=== PATIENT | female | born 1970 | race Caucasian/White ===

== ENCOUNTER 2020-03-31 07:01 | Day surgery (SDC) | payer OTHER ==
--- NOTE | 2020-02-26 11:41 | EKG ---
Test Date: 2020-02-26 Test Time: 11:23:29 Petroleum Inspector: KALEIGH MEASUREMENT RESULTS: Intervals: Rate: 72 VT: 162 QRSD: 78 QT: 394 QTc: 431 Sunset: P: 40 VT: 162 QRS: -40 T: -11 INTERPRETIVE STATEMENTS: Normal sinus rhythm Left axis deviation Anterior infarct, age undetermined Abnormal ECG No previous ECG available for comparison Electronically Signed On 02-26-20 11:40:40 WIRE FRAME DIPPER by Abraham Shirley
--- NOTE | 2020-02-26 13:33 | RAD REPORT ---
EXAM DESCRIPTION: RAD - Chest Pa And Lat (2 Views) - 02/26/2020 12:01 pm CLINICAL HISTORY: preop, patient kidney stone removal COMPARISON: None TECHNIQUE: Frontal and lateral views of the chest were obtained. FINDINGS: The lungs are clear. Heart size is normal and central vasculature is within normal limit s. No pleural effusion or pneumothorax seen. No acute bony finding noted. No aortic abnormality. IMPRESSION: No acute cardiopulmonary process.
[2020-03-27 11:51] LABS: Urine Appearance CLEAR; Urine Bilirubin NEGATIVE (NEG); Urine Blood TRACE (NEG); Urine Color YELLOW; Urine Glucose NEGATIVE (NEG); Urine Protein NEGATIVE (NEG); Urine Urobilinogen 0.2 mg/dL (0.2-1.0); Urine pH 5.5 (5.0-7.0)
[2020-03-27 11:55] LABS: Urine Microscopic Reflex ORDER UMIC
[2020-03-27 11:58] LABS: Hematocrit 37.4 % (36.0-45.0); MPV 7.9 fL (7.6-11.3); RBC Red Blood Cell Count 4.32 M/uL (3.86-4.86)
[2020-03-27 12:05] LABS: Protime INR 0.97
[2020-03-27 12:05] LABS: Urine Bacteria <20 /HPF (<20); Urine RBC <5 /HPF (NONE SEEN)
--- OUTSIDE RECORDS SUMMARY | 2020-03-31 07:16 | XMS REPORT ---
:1970 Author Organization [facility] Address [address] [facility] [place] [address] Care Team Providers Name Role Phone Uziel Tomlin Unavailable [phone] PROBLEMS Type Condition ICD9-CM [id number] Onset Condition SNOMED Code Notes Code Code Dates Status Problem Ureterolithiasis N20.1 Active 70962644 Problem Kidney stones N20.0 Active 28092730 Problem Lesion of right N28.9 Active 20426192 [place] [facility] ALLERGIES Allergen (clinical Drug/Non Drug Reaction Allergy Type Onset Date S tatus drug ingredient) Allergy documented on EMR SULFA Unknown Non Drug Allergy Active ENCOUNTERS from 1970 to 2020-03-11 Encounter Location Date Provider Diagnosis [facility] [address] [facility] [address], Uziel Tomlin Specialty[facility] [address] IMMUNIZATIONS No Information SOCIAL HISTORY Tobacco Use: Social History Observation Description Date Details (start date - stop date) Never Smoker Sex Assigned At : Social History Observation Description Sex Assigned At Unknown Alcohol Screen Question Answer Notes Did you have a drink containing alcohol in the past year? No Points 0 Interpretation Negative Tobacco Use/Smoking Question Answer Notes Are you a never smoker REASON FOR REFERRAL No Information VITAL SIGNS No information MEDICATIONS Medication SIG (Take, Route, Notes Start Date End Date Status Frequency, Duration) Gabapentin 100 MG 1 capsule Orally Once a Active day Metformin HCl 1000 MG 1 tablet with meals Orally Active Twice a day Metoprolol Tartrate 25 MG 1 tablet with food Orally Active Twice a day Sertraline HCl 50 MG 1 tablet Orally Once a day Active cyclobenzaprine Active BusPIRone HCl 15 MG 1 tablet Orally Twice a Active day PROCEDURES No Information RESULTS No Results REASON FOR VISIT No Information MEDICAL (GENERAL) HISTORY Type Description Date Medical History DEPRESSION Medical History DIABETES Medical History HYPERTENSION Medical History KIDNEY STONE Surgical History LEFT FOOT Surgical History GALLBLADDER REMOVED Goals Section No Information Health Concerns No Information MEDICAL EQUIPMENT No Information MENTAL STATUS No Information FUNCTIONAL STATUS No Information ASSESSMENTS No Information PLAN OF TREATMENT Next Appt Details Provider Name:Uziel Tomlin, 11:00:00 AM, [address] [place] [address], [facility] [address], [place], [address], Insurance Providers Payer Name Payer Payer Insured Name Patient Coverage Covera End Address Phone Relationship to Start Date Armen e Insured [employer] [phone] ANIL BUNCH self [id number] [address]
--- OUTSIDE RECORDS SUMMARY | 2020-03-31 07:16 | XMS REPORT ---
:1970 Author Organization [facility] Address [address] [facility] [place] [address] Care Team Providers Name Role Phone Uziel Tomlin Unavailable [phone] PROBLEMS Type Condition ICD9-CM [id number] Onset Condition SNOMED Code Notes Code Code Dates Status Problem Ureterolithiasis N20.1 Active 77892671 Problem Kidney stones N20.0 Active 19207764 Problem Lesion of right N28.9 Active 74017426 [place] [facility] ALLERGIES Allergen (clinical Drug/Non Drug Reaction Allergy Type Onset Date S tatus drug ingredient) Allergy documented on EMR SULFA Unknown Non Drug Allergy Active ENCOUNTERS from 1970 to 2020-02-17 Encounter Location Date Provider Diagnosis [facility] [address] Jan, Uziel Tomlin Ureterolithi asis N20.1 Specialty/Urology [address] and Lesion of right Clinic [place] [facility] N 28.9 [address] IMMUNIZATIONS No Information SOCIAL HISTORY Tobacco Use: [...] REASON FOR REFERRAL No Information VITAL SIGNS Height 65 in Jan, Weight 196.4 lbs Jan, Temperature 98.4 degrees Fahrenheit Jan, BMI 32.68 kg/m2 Jan, Oximetry 98 % Jan, Blood pressure systolic 155 mm Hg Jan, Blood pressure diastolic 81 mm Hg Jan, MEDICATIONS Medication SIG (Take, Route, Notes Start [...] Information RESULTS No Results REASON FOR VISIT KIDNEY STONES/ER MEDICAL (GENERAL) HISTORY Type Description Date Medical History DEPRESSION Medical History DIABETES Medical History HYPERTENSION Medical History KIDNEY STONE Surgical History LEFT FOOT Surgical History GALLBLADDER REMOVED Goals Section No Information Health Concerns No Information MEDICAL EQUIPMENT No Information MENTAL STATUS No Information FUNCTIONAL STATUS No Information ASSESSMENTS Encounter Date Diagnosis Assessment Notes Treatment Notes Treatm ent Clinical Notes Jan, Ureterolithiasis (ICD-10 - N20.1) Jan, Lesion of right [place] [facility] (ICD-10 - N28.9) PLAN OF TREATMENT Treatment Notes Test Name Order Date URINALYSIS AUTO W/O SCOPE (00608) 2020-02-17 Insurance Providers Payer Name Payer Payer Insured Name Patient Coverage Covera ge End Address Phone Relationship to Start Date Armen e Insured A[employer] [phone] ANIL VELAZCO self [id number] [address]
--- OUTSIDE RECORDS SUMMARY | 2020-03-31 07:16 | XMS REPORT | Continuity of Care Document ---
:1970 Author [facility] Address [address] [place] [address] Care Team Providers Name Role Phone Unavailable Unavailable Unavailable Problems Condition Condition Condition Status Onset Resolution Last Treating Co mments Source Name Details Category Date Date Treatment Clinician Date Acute Acute Problem Active [facility] otitis Otitis 04-10 [facility] Media 00:00: Medical 00 Group Asthmatic Asthmatic Problem Active [facility] bronchitis Bronchitis 04-10 da 00:00: Medical 00 Group Skin Skin Problem Active 2016-03 [facility] lesion Lesion 0-05 da 00:00: Medical 00 Group Malaise Malaise Problem Active 2016-03 [facility] 0-05 da 00:00: Medical 00 Group Easy Easy Problem Active 2016-03 [facility] bruising Bruising 0-05 da 00:00: Medical 00 Group Traumatic Traumatic Problem Active [facility] hematoma Hematoma 2- da 00:00: Medical 00 Group 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 [facility] Anxiety Anxiety Problem Active [facility] Migraine Migraine Problem Active [facility] Eustachian Eustachian Problem Active M [facility] tube Tube da disorder Disorder Medica l Group Labile Labile Problem Active [facility] essential Essential da hypertensi Hypertensi Me dical on on Group Allergic Allergic Problem Active [facility] rhinitis Rhinitis [facility] Dysmenorrh Dysmenorrh Problem Active [facility] ea ea [facility] Prolonged Prolonged Problem Active [facility] periods Periods [facility] Low back Low Back Problem Active [facility] pain Pain [facility] Foot pain Foot Pain Problem Active [facility] Dizziness Dizziness Problem Active [facility] present Present [facility] Fatigue Fatigue Problem Active [facility] Headache Headache Problem Active [facility] Abdominal Abdominal Problem Active [facility] pain Pain [facility] Motion Motion Problem Active [facility] sickness Sickness [facility] Allergies, Adverse Reactions, Alerts Allergy Allergy Status Severity Reaction(s) Onset Inactive Treating Comm ents Source Name Type Date Date Clinician SULFA Allergy Active [facility] (SULFONA to da [facility] ANTIBIOT e Group ICS) Social History Smoking Status Start Date Stop Date Source Never Smoker [facility] Medications This patient has no known medications. Immunizations Ordered Immunization Filled Immunization Date Status Commen ts Source Name Name influenza, influenza, 2019-03-20 Completed [place] injectable, injectable, 00:00:00 [facility] p quadrivalent quadrivalent Vital Signs Vital Name Observation Time Observation Value Comments Source BP Diastolic 2020-03-16 00:00:00 83 mm[Hg] [facility] Height 2020-03-16 00:00:00 65 [in_i] [facility] BMI (Body Mass 2020-03-16 00:00:00 31.2 kg/m2 [facility] BP Systolic 2020-03-16 00:00:00 120 mm[Hg] [facility] Body Weight 2020-03-16 00:00:00 3003.2 [oz_av] [facility] BP Diastolic 2019-01-17 00:00:00 94 mm[Hg] [facility] Height 2019-01-17 00:00:00 65 [in_i] [facility] BMI (Body Mass 2019-01-17 00:00:00 32.7 kg/m2 [facility] BP Systolic 2019-01-17 00:00:00 159 mm[Hg] [facility] Body Weight 2019-01-17 00:00:00 3141 [oz_av] [facility] Procedures Procedure Date / Time Performing Clinician Source Performed Cholecystectomy 1997-03-20 00:00:00 [facility] Plan of Care Planned Activity Planned Date Details Comments Source Diagnostic Test 2020-03-16 rapid SARS CoV + [facility] Pending 00:00:00 SARS CoV 2 Ag, QL Group IA, respiratory specimen [code = rapid SARS CoV + SARS CoV 2 Ag, QL IA, respiratory specimen] Future Appointment 2020-04-16 Iman Price, [address] [facility] 00:00:[address] [address]; [place] [address] Instructions [facility] Encounters Start End Encounter Admission Attending Care Care Encounter Source Date/Time Date/Time Type Type Clinicians Facility Department ID 2020-03-16 2020-03-16 Iman ZAMUDIO [place] - [id number] [facility] 00:00:00 00:00:00 [facility] [employer]: [address] [address], [place] [address] , Ph. 2020-03-11 2020-03-11 Outpatient [facility] [id number] [facility] 2020-02-17 2020-02-17 Outpatient [facility] [id number] [facility] 2019-01-17 2019-01-17 Iman ZAMUDIO [place] - [id number] [facility] 00:00:00 00:00:00 [facility] [employer]: [address] [address], [place] [address] , Ph. Results This patient has no known results.
--- OUTSIDE RECORDS SUMMARY | 2020-03-31 07:17 | XMS REPORT | Encounter Summary ---
:1970 Author Care Team Providers Name Role Phone Nile Justin MD Primary Care Provider [phone] Reason for Visit None recorded. Instructions 1. COVID-19 rapid SARS CoV + SARS CoV 2 Ag, QL IA, respiratory specimen 2. Kidney stone kidney stone: care instruc tions learning about diet for ki dney stone prevention Discussion Note: None recorded. Plan of Care Patient Instructions Hydrate. F/U with urology. F/U for wellness exam in 1 month. Reminders Provider Appointments Adult on or around [place] [place] Physical Exam (50-64) 04/16/2020 [facility] Rapid SARS 03/16/2020 In-Off ice Order CoV + SARS CoV 2 Ag, QL IA, Respiratory Specimen Referral None recorded. Procedures None recorded. Surgeries None recorded. Imaging None recorded. Medications No Medications Reported Medications Administered None recorded. Vitals Height Weight BMI Blood Pressure 65 in 187 lbs 11.2 oz 31.2 kg/m2 120/83 mm[Hg] Results Lab Results Date Name Specimen Result Interpretation Description Value Range Status Address Rapid SARS CoV + SARS-CoV - negative In-Office Order: SARS CoV 2 Ag, 2 In ternal Use QL IA, Only DO No t Respiratory Attac h Specimen Compendi um DO Not Attach Compendium , Do Not Delete /merge Allergies Code Code System Name Reaction Severity Status Onset Sulfa Active (Sulfonamid e Antibiotics ) Problems Name Status Onset Date Source Traumatic Hematoma Active 04/28/2016 Skin Lesion Active 12/22/2016 Malaise Active 12/22/2016 Easy Bruising Active 12/22/2016 Acute Otitis Media Active 04/10/2017 Asthmatic Bronchitis Active 04/10/2017 Neoplasm of Kidney Active Encounter Anxiety Active Encounter Migraine Active Encounter Eustachian Tube Disorder Active Encount er Labile Essential Hypertension Active En counter Allergic Rhinitis Active Encounter Dysmenorrhea Active Encounter Prolonged Periods Active Encounter Low Back Pain Active Encounter Foot Pain Active Encounter Dizziness Present Active Encounter Fatigue Active Encounter Headache Active Encounter Abdominal Pain Active Encounter Motion Sickness Active Encounter Procedures Date Name Performed by 03/20/1997 Cholecystectomy Information not avai lable [facility] Foot Joint Information no t available Vaccine List Vaccine Type influenza, injectable, quadrivalent 03/20/2019 Social History Tobacco Smoking Status Never Smoker Past Encounters Encounter Date Diagnosis Provider 03/16/2020 Covid-19; Kidney Stone Iman Green Glenna ns, 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 History of Present Illness Note: Tested positive for COVID 02/27/2020, kidney stone surgery cancelled. Need a negative for surgery and to rtn to work. Denies symptoms. Review of Systems Problem ROS - Female Reported By: Patient Constitutional: Constitutional: no significa nt weight change, good appetite, no fever, happy/content, nor mal activity level, no fatigue Eyes: Eyes: no eye pain, no blurry vision, no eye redness, no eye itchiness, no eye swelling, no eye discharge, normal movement ENMT: ENMT: no ear pain, no ear di scharge, no hearing loss, no sinus pressure, no drooling, no fa cial swelling, no congestion, no sore throat, no hoarseness, no mouth lesions Cardiovascular: Cardiovascular: no chest coby n, normal heart rate Chest/Breasts: Breasts: no lumps, no tender ness, no discharge Respiratory: Respiratory: no cough, no wh eezing, no chest tightness, no pain with respiration, yessy l respiration Gastrointestinal: GI: no difficulty swallowing , no abdominal pain, no nausea, no vomiting, no diarrhea, no co nstipation, no blood in stools, no mucous in stool Genitourinary: : no discharge, no blood i n urine, no pain with urination, no increase in frequency of urination, no voiding urgency, no vaginal discharge Musculoskeletal: Musculoskeletal: no soft tis raf swelling, no joint swelling, no myalgia, moves all extrem eties well, no previous injuries, no trauma Skin: Skin: no pain, no itchiness, no skin dryness, no flaking, no redness, no rash, no diaper rash, no hives, no skin lesions, no skin growths, no skin lum ps, no swelling, no bruising, no insect bites Neurological symptoms: Neuro: no numbness, no weakn ess, no tingling, no burning, no shooting pain, no headache, no dizziness, no loss of conciousness Psychiatric: Psych: no depression, no anx iety, no insomnia, no stress, no loss of interest Endocrine: Endocrine: normal drinking, no temperature intolerance Allergic/Immunologic: Allergy/Immunologic: no snee zing, no runny nose Notes: Left flank pain Physical Exam General Adult Exam - Female Reported By: Patient Constitutional: General Appearance: well-dev eloped, obese. Level of Distress: NAD, acutely ill. Ambulation: amb ulating normally Psychiatric: Insight: good judgement. Men catarino Status: active and alert, normal mood, normal affect. Orienta tion: to time, to place, to person. Memory: recent memory normal , remote memory normal Head: Head: normocephalic, atrauma tic Eyes: Lids and Conjunctivae: non-i njected, no discharge, no pallor. Pupils: PERRLA. EOM: EOMI. L ens: clear ENMT: Ears: no lesions on external ear. Hearing: no hearing loss Lungs: Respiratory effort: no dyspn ea. Percussion: no dullness, flatness, or hyperresonance. Auscultat ion: breath sounds normal, good air movement, CTA except as note d, no wheezing, no rales/crackles, no rhonchi Cardiovascular: Apical Impulse: not displace d. Heart Auscultation: RRR, normal S1, normal S2, no murmurs, no ru bs, no gallops. Neck vessels: no carotid bruits. Pulses inclu ding femoral / pedal: normal throughout Musculoskeletal:: Motor Strength and Tone: nor mal motor strength, normal tone. Joints, Bones, and Muscles: normal movement of all extremities, no bony abnormalities, no contr actures, no malalignment, no tenderness. Extremities: no cyanosis, no edema, no varicosities, no palpable cord Neurologic: Gait and Station: normal gai t, normal station. Cranial Nerves: grossly intact. Sensation: g rossly intact, monofilament test intact. Reflexes: DTRs 2+ bi laterally throughout. Coordination and Cerebellum: [id number] i ntact, no tremor
[2020-03-31] MEDS ORDERED: NA CHLORIDE 0.9% 1,000 ML ONE (07:39)
[2020-03-31] MEDS ORDERED: CEFAZOLIN/SWI 1gm 1 GM/10 ML SYR ONE (07:39)
[2020-03-31] MEDS ORDERED: propofoL 200 MG/20 ML VIAL IV ONE ×2 (08:32→09:18)
[2020-03-31] MEDS ORDERED: FENTANYL CITR 100 MCG/2 ML ONE (08:32)
[2020-03-31] MEDS ORDERED: MIDAZOLAM HCL 2 MG/2 ML INJ ONE (08:32)
[2020-03-31] MEDS ORDERED: LIDOCAINE 1% MPF 5 ML VIAL ONE (08:33)
[2020-03-31] MEDS ORDERED: ONDANSETRON 4 MG/2 ML VIAL ONE (09:34)
[2020-03-31] MEDS ORDERED: dexAMETHasone 10 MG/ML VIAL ONE (09:34)
[2020-03-31] MEDS ORDERED: KETOROLAC 30 MG/ML INJ ONE (09:34)
--- NOTE | 2020-03-31 10:17 | RAD REPORT ---
EXAM DESCRIPTION: RAD - Urethrocystogrphy Retrograde - 03/31/2020 9:35 am FINDINGS: There were 27 KUB images obtained during a fluoroscopic assisted placement of a left urete ral stent. Images show stepwise placement of the stent with no suspicious or unexpected finding. Fluoro time was 40 seconds.
[2020-03-31 11:00] VITALS: BP 140/77; TEMP 97.6; O2SAT 99
--- NOTE | 2020-03-31 11:45 | OP ---
Surgeon: RACHELLE KNOX Preoperative Diagnosis: Left obstructive ureterolithiasis, 7 mm. Associated Diagnosis: Renal lesion. Postoperative Diagnosis: Left obstructive ureterolithiasis, 7 mm. Principal Procedures: 1.Cystoscopy. 2.Left retrograde pyelography. 3.Left ureteroscopy. 4.Left ureteral stent placement. Indication For Procedure: Ms. Duran presented to the Urology Clinic having been seen in the Emergen cy Department with flank pain and an obstructing 7 mm proximal ureteral calculus on the left. She at tempted a trial of passage, but was scheduled ultimately for surgery when she was unable to successfu lly and spontaneously pass the stone. She presents today for definitive management. Of note, she fernandez d an incidentally observed, poorly characterized renal lesion that is pending evaluation. Procedure Note: The patient was consented in the preoperative holding area before being transferred to the operative suite where general anesthesia using an LMA was induced. She was given ampicillin a nd gentamicin IV antimicrobial prophylaxis and pneumo boots were provided for DVT prophylaxis. She w as placed in the lithotomy position, padded and secured to the table appropriately. Her genitalia we re prepped using Hibiclens and she was draped in standard fashion. The case was begun using a [facility] rigid cystoscope to traverse the urethra and into the bladder with ease. The bladder was surveye d in its entirety, and there were no mucosal lesions, foreign bodies or stones noted throughout. The trigone was orthotopic in location, and the left ureteral orifice was identified and cannulated usin g the tip of a 5-Malaysian ureteral access catheter. A retrograde pyelogram was then performed. Left retrograde pyelography: Using a 70:30 mixture of Omnipaque and saline, contrast mixture was inj ected via the 5-Malaysian ureteral access catheter and did propagate with ease up the ureter and into a relatively dilated left renal pelvis with some caliectasis. Thus, via the 5-Malaysian ureteral access c atheter, a Sensor wire was passed and did coil with ease in the upper pole calyx of the left kidney. I then removed the 5-Malaysian ureteral access catheter and placed over the indwelling Sensor wire a du al-lumen catheter. The dual-lumen catheter would only barely enter the ureteral orifice, but would n ot pass beyond 1 or 2 cm therein. I was able to inject dye into the second lumen of the ureteral acc ess catheter to confirm its intraureteral location. Once done, I then passed a Empathicason guidewire eas ivan into the upper pole of the kidney, coiling fluoroscopically next to the indwelling Sensor wire. I thus removed the dual-lumen catheter and attempted to pass a ureteral access catheter over the seco nd placed guidewire. The ureteral access catheter would similarly only pass approximately 1 cm into the ureteral orifice. Attempts to pass it further in order to facilitate passage of the flexible ure teroscope were not possible. As a result, I then removed the ureteral access catheter and leaving jorge th wires in place performed direct visualization semirigid ureteroscopy and was able to enter the ure teral orifice and pass the ureteroscope into the mid distal ureter before it was unwise to pass it fu rther due to the ureteral spasm and tension felt. As a result, having further dilated the ureteral o rifice, I then replaced the ureteral access catheter into the distal ureteral orifice an attempted to pass the flexible ureteroscope to gain access into the proximal ureter and renal pelvis. Unfortunat david, I was not able to pass the flexible ureteroscope beyond the pelvic brim and despite attempts to pass it further using a superstiff guidewire via the flexible ureteroscope, the ureteroscope would no t pass. As a result, I removed the ureteroscope and the second wire and using the Sensor wire, I monica kloaded the cystoscope to place a 6-Malaysian x 26 cm double-J left ureteral stent with ease with a coil observed fluoroscopically in the upper pole of the kidney and one cystoscopically within the bladder . The bladder was then decompressed of fluid and urine, and the scope was removed. The patient was then taken out of lithotomy position, then awakened from general anesthesia before being transferred to a stretcher and then to the recovery room in good condition. Complications: None. Discharge Disposition: The patient will require a subsequent operative followup for definitive manag ement of her proximal ureteral calculus and in the interim, we will evaluate the poorly characterized renal lesion with a CT scan without and with IV contrast. WR/MODL Voice ID: [id number] Report ID: [id number]
== END 2020-03-31 10:50 | disposition home or self-care (01) ==
LOC: OR 07:01
PROVIDERS: ATTEND Urology
PROC: BT1FZZZ Fluoroscopy of Left Kidney, Ureter and Bladder (ICD-10-PCS; 2020-03-31)
PROC: 0T778DZ Dilation of Left Ureter with Intraluminal Device, Via Natural or Artificial Opening Endoscopic (ICD-10-PCS; principal; 2020-03-31 08:54)
DX: N20.1 Calculus of ureter (principal); I10 Essential (primary) hypertension; E11.9 Type 2 diabetes mellitus without complications; N28.9 Disorder of kidney and ureter, unspecified; Z20.822 Contact with and (suspected) exposure to COVID-19; Z86.16 Personal history of COVID-19
CPT/HCPCS: 52005; 52351; 52332; 93005; 87088 ×2; 87086 ×2; 80048; 36415; 85610; 82947 ×2; 85730; 85027; 71046; 74450; 51610; U0002 ×2; J2704 ×2; J2250; J3010; J1100; J0690; J7030; J2405; 81003; 81015

== ENCOUNTER 2020-04-28 08:52 | Day surgery (SDC) | payer OTHER ==
[~2020-04-28 08:52] MED LIST: AMPICILLIN SODIUM 2 GM in NA CHLORIDE 0.9% 100 ML IVPB SCH; Gentamicin Inj 240 MG in NA CHLORIDE 0.9% 100 ML IV SCH
[2020-04-28] MEDS ORDERED: CEFAZOLIN/SWI 1gm 1 GM/10 ML SYR ONE (10:24)
[2020-04-28] MEDS ORDERED: NA CHLORIDE 0.9% 1,000 ML ONE ×2 (10:24→14:38)
[2020-04-28] MEDS ORDERED: dexAMETHasone 10 MG/ML VIAL ONE (12:25)
[2020-04-28] MEDS ORDERED: propofoL 200 MG/20 ML VIAL IV ONE (12:25)
[2020-04-28] MEDS ORDERED: KETOROLAC 30 MG/ML INJ ONE (12:25)
[2020-04-28] MEDS ORDERED: MIDAZOLAM HCL 2 MG/2 ML INJ ONE (12:25)
[2020-04-28] MEDS ORDERED: FENTANYL CITR 100 MCG/2 ML ONE ×2 (12:25→14:23)
[2020-04-28] MEDS ORDERED: ONDANSETRON 4 MG/2 ML VIAL ONE (12:26)
[2020-04-28] MEDS ORDERED: LIDOCAINE 1% MPF 5 ML VIAL ONE (12:26)
[2020-04-28] MEDS ORDERED: ROCURONIUM 50 MG/5 ML VIAL IV ONE (14:41)
[2020-04-28] MEDS ORDERED: Mastisol Adhesive Liq ONE (14:43)
--- NOTE | 2020-04-28 15:22 | RAD REPORT ---
EXAM DESCRIPTION: RAD - Urethrocystogrphy Retrograde - 04/28/2020 3:02 pm FINDINGS: There were 19 fluoroscopic KUB images obtained during fluoroscopic assisted placement of a left ureteral stent. Images show stepwise placement of the stent with no suspicious or unexpected findings. Stent is in go od position. Fluoro time was 0.1 minutes.
--- NOTE | 2020-04-28 15:38 | OP ---
Surgeon: RACHELLE KNOX Preoperative Diagnosis: Left obstructive ureterolithiasis with left 6 mm nephrolithiasis. Postoperative Diagnosis: Left nephrolithiasis 6 mm. Principle Procedures: Cystoscopy, left ureteroscopy, laser lithotripsy, stent exchange. Indication For Procedure: Ms. Duran presented to the Urology Clinic with an obstructing left mid ur eteral calculus. She underwent stent placement due to spasm of the ureter that would not allow passa ge of the ureteroscope. She presents today for definitive management of her stone. Procedure In Detail: The patient was consented in the preoperative holding area before being transfe rred to the operative suite where general anesthesia was induced. She was given ampicillin and genta micin IV antimicrobial prophylaxis. Pneumo boots were provided for DVT prophylaxis. She was placed in the lithotomy position, padded and secured to the table appropriately. Her genitalia were prepped using Hibiclens and draped in standard fashion. The case was begun using a 22-Angolan rigid cystosco pe to traverse the urethra and into the bladder with ease. The bladder was then surveyed to identify the stent emanating from the left ureteral orifice. This was grasped using an alligator grasper and delivered via the meatus. A Sensor wire was then passed via the stent and did coil within the putat namrata collecting system on the left. A dual-lumen catheter was then placed into the mid distal ureter and a second Bentson guidewire was passed into the collecting system alongside the indwelling Sensor wire. I then utilized a semi-rigid ureteroscope to directly visualize through the urethra and into t he bladder. I then entered the ureteral orifice and was able to navigate it up into the proximal ure ter where no stone was observed along the way. I then switched to a flexible ureteroscope, which I p assed over the Bentson guidewire into the upper pole of the kidney. I then surveyed each of the rica martin of the kidney and performed an antegrade pyelogram to confirm that all calices had been visualize d. A single 6 mm calculus was noted within the upper pole posterior calyx and due to the difficulty of the positioning relative to the flexible ureteroscope, a basket was required to deliver the stone into the UPJ. There, I used a 272 nm laser fiber to fragment the stone into dust using laser setting s of 0.8 and 15. I then surveyed the calices again, and with no additional stone fragments of any si gnificance noted, I then observed from the pelvis down the proximal to the mid and distal ureter wher e with no additional stones noted, ureteroscopy was discontinued. I then back-loaded the cystoscope over the indwelling safety wire and placed a 6-Angolan by 24 cm double-J left ureteral stent with a co il observed within the renal pelvis and 1 cystoscopically within the bladder. The patient was then a wakened from general anesthesia after being taken out of the lithotomy position, transferred to a [facility] etcher and then transferred to the recovery room in good condition. Complications: None. Discharge Disposition: The stent is left on a tether and may be removed within the next 2-3 days by nurse practitionerAlvin in the office. Antimicrobial prophylaxis should be provided at the time of stent removal and broad-spectrum enough to prevent infection, so either ciprofloxacin or Keflex w ould be preferred. Subsequent followup will be determined based on whether she is a recurrent stone former or not and whether a metabolic profile assessment is required. EDWIN/ALLEN Voice ID: [id number] Report ID: [id number]
[2020-04-28 16:00] VITALS: TEMP 96.9
[2020-04-28] MEDS ORDERED: HYDROCODONE/APAP 10/325 TAB ONE (16:00)
[2020-04-28 16:32] VITALS: BP 138/61; O2SAT 98
--- OUTSIDE RECORDS SUMMARY | 2020-04-29 05:06 | XMS REPORT ---
:1970 Author Organization [facility] Address [address] [place] [address] Care Team Providers Name Role Phone NaborUziel Unavailable [phone] PROBLEMS Type Condition ICD9-CM [id number] Onset Condition SNOMED Code Notes Code Code Dates Status Problem Lower urinary R39.9 Active 047566300 tract symptoms (LUTS) Problem Bladder spasms N32.89 Active 631324833 Problem Lesion of right N28.9 Active 52574128 [place] [facility] Problem Ureterolithiasis N20.1 Active 04858173 Problem Kidney stones N20.0 Active 38293644 Problem Complex renal cyst N28.1 Active 3357001298389 4102 ALLERGIES Allergen (clinical Drug/Non Drug Reaction Allergy Type Onset Date S tatus drug ingredient) Allergy documented on EMR SULFA Unknown Non Drug Allergy Active ENCOUNTERS from 1970 to 2020-04-09 Encounter Location Date Provider Diagnosis [facility] [address] [facility] [address], Uziel Tomlin [facility] [address] IMMUNIZATIONS No Information SOCIAL HISTORY Tobacco Use: [...] Start Date End Date Status Frequency, Duration) BusPIRone HCl 15 MG 1 tablet Orally Active Twice a day Sertraline HCl 50 MG 1 tablet Orally Once Active a day Metoprolol Tartrate 25 MG 1 tablet with food Active Orally Twice a day Metformin HCl 1000 MG 1 tablet with meals Active Orally Twice a day Ditropan 5mg one orally TID PRN Mar, Apr, Active for 15 days Gabapentin 100 MG 1 capsule Orally A ctive Once a day cyclobenzaprine Active PROCEDURES No Information RESULTS No Results REASON [...] Information ASSESSMENTS No Information PLAN OF TREATMENT Medication Medication Name Sig Start Date Stop Date Ditropan 5mg one orally TID PRN for 15 days Mar, 2 0 Apr, 2020 Insurance Providers Payer Name Payer Payer Insured Name Patient Coverage Covera ge End Address Phone Relationship to Start Date Armen e Insured [employer] [phone] ANIL BUNCH self [id number] [place] [address]
--- OUTSIDE RECORDS SUMMARY | 2020-04-29 05:06 | XMS REPORT ---
:1970 Author Organization [facility] Address [address] [place] [address] Care Team Providers Name Role Phone Uziel Tomlin Unavailable [phone] PROBLEMS Type Condition ICD9-CM UGT94-YY Onset Condition SNOMED Code Notes Code Code Dates Status Problem Lower urinary R39.9 Active 556612552 tract symptoms (LUTS) Problem Bladder spasms N32.89 Active 180744811 Problem Lesion of right N28.9 Active 40748502 [place] [facility] Problem Ureterolithiasis N20.1 Active 78350644 Problem Kidney stones N20.0 Active 08627741 Problem Complex renal cyst N28.1 Active 5701262732178 4102 ALLERGIES Allergen (clinical Drug/Non Drug Reaction Allergy Type Onset Date S tatus drug ingredient) Allergy documented on EMR SULFA Unknown Non Drug Allergy Active ENCOUNTERS from 1970 to 2020-04-09 Encounter Location Date Provider Diagnosis [facility] [address] [place], Uziel Tomlin Complex manisha l cyst N28.1 Specialty/Urology [facility] [address] ; Ureterol ithiasis N20.1 [place], [place] ; Bladder spasm s N32.89 [id number] and Lower urina ry tract symptoms (LUTS) R39.9 IMMUNIZATIONS No Information SOCIAL HISTORY Tobacco Use: [...] No Information VITAL SIGNS Height 65 in Mar, Weight 187.6 lbs Mar, Temperature 98.2 degrees Fahrenheit Mar, BMI 31.21 kg/m2 Mar, Oximetry 98 % Mar, Blood pressure systolic 159 mm Hg Mar, Blood pressure diastolic 76 mm Hg Mar, MEDICATIONS Medication SIG (Take, Route, Notes Start [...] Ditropan 5mg one orally TID PRN Mar, 20 Apr, 2020 Active for 15 days Gabapentin 100 MG 1 capsule Orally A ctive Once a day cyclobenzaprine Active PROCEDURES No Information RESULTS No Results REASON FOR VISIT HOSP FOLLOW-UP, CT SCAN RESULTS MEDICAL (GENERAL) HISTORY Type Description Date Medical History DEPRESSION Medical History DIABETES Medical History HYPERTENSION Medical History KIDNEY STONE Surgical History LEFT FOOT Surgical History GALLBLADDER REMOVED Goals Section No Information Health Concerns No Information MEDICAL EQUIPMENT No Information MENTAL STATUS No Information FUNCTIONAL STATUS No Information ASSESSMENTS Encounter Date Diagnosis Assessment Notes Treatment Notes Treatm ent Clinical Notes Mar, Complex renal cyst (ICD-10 - N28.1) Mar, Ureterolithiasis (ICD-10 - N20.1) Mar, Bladder spasms (ICD-10 - N32.89) Mar, Lower urinary tract symptoms (LUTS) (ICD-10 - R39.9) PLAN OF TREATMENT Medication Medication Name Sig Start Date Stop Date Ditropan 5mg one orally TID PRN for 15 days Mar, 2 0 Apr, 2020 Insurance Providers Payer Name Payer Payer Insured Name Patient Coverage Covera ge End Address Phone Relationship to Start Date Armen e Insured [employer] [phone] ANIL BUNCH self [id number] [place] [address]
--- OUTSIDE RECORDS SUMMARY | 2020-04-29 05:06 | XMS REPORT | Continuity of Care Document ---
:1970 Author Organization [facility] t Address [address] [place] [address] Care Team Providers Name Role Phone Unavailable Unavailable Unavailable Problems Condition Condition Condition Status Onset Resolution Last Treating Co mments Source Name Details Category Date Date Treatment Clinician Date Acute Acute Problem Active [facility] Otitis - da media Media 00:00: Medical 00 Group Asthmatic Asthmatic Problem Active [facility] bronchitis Bronchitis - da 00:00: Medical 00 Group Skin Skin Problem Active 2016-03 [facility] lesion Lesion 0-05 da 00:00: Medical 00 Group Malaise Malaise Problem Active 2016-03 [facility] 0-05 da 00:00: Medical 00 Group Easy Easy Problem Active 2016-03 [facility] bruising Bruising 0-05 da 00:00: Medical 00 Group Traumatic Traumatic Problem Active [facility] hematoma Hematoma 2-09 da 00:00: Medical 00 Group Neoplasm Neoplasm [...] SULFA Allergy Active [facility] (SULFONA to da [facility] ANTIBIOT e Group ICS) Social History Smoking Status Start Date Stop Date Source Never Smoker [facility] Medications This patient has no known medications. Immunizations Ordered Immunization Filled Immunization Date Status Commen ts Source Name Name influenza, influenza, 2019-03-20 Completed [place] injectable, injectable, 00:00:00 [facility] p quadrivalent quadrivalent Vital Signs Vital Name Observation Time Observation Value Comments Source BP Diastolic 2020-03-16 00:00:00 83 mm[Hg] [facility] Height 2020-03-16 00:00:00 65 [in_i] [facility] BMI (Body Mass 2020-03-16 00:00:00 31.2 kg/m2 [facility] BP Systolic 2020-03-16 00:00:00 120 mm[Hg] [facility] Body Weight 2020-03-16 00:00:00 3003.2 [oz_av] [facility] BP Diastolic 2019-01-17 00:00:00 94 mm[Hg] [facility] Height 2019-01-17 00:00:00 65 [in_i] [facility] BMI (Body Mass 2019-01-17 00:00:00 32.7 kg/m2 [facility] BP Systolic 2019-01-17 00:00:00 159 mm[Hg] [facility] Body Weight 2019-01-17 00:00:00 3141 [oz_av] [facility] Procedures Procedure Date / Time Performing Clinician Source Performed Cholecystectomy 1997-03-20 00:00:00 [facility] Exploration of Foot Joint [facility] Plan of Care Planned Activity Planned Date Details Comments Source Diagnostic Test 2020-03-16 rapid SARS CoV + [facility] Pending 00:00:00 SARS CoV 2 Ag, QL Group [place], respiratory specimen [code = rapid SARS CoV + SARS CoV 2 Ag, QL [place], respiratory specimen] Instructions [facility] Encounters Start End Encounter Admission Attending Care Care Encounter Source Date/Time Date/Time Type Type Clinicians Facility Department ID 2020-04-09 2020-04-09 Outpatient [facility] [id number] 2020-04-09 2020-04-09 Out[facility] [id number] [facility] 2020-03-16 2020-03-16 Iman [place] - [id number] [facility] 00:00:00 00:00:00 Norma Lewis, Medical Medical BOOKING MANAGER: [address], [place] [address] , Ph. 2020-03-11 2020-03-11 Outpatient [facility] [id number] [facility] 2020-02-17 2020-02-17 Outpatient [facility] [id number] [facility] 2019-01-17 2019-01-17 [facility] [place] - [id number] [facility] 00:00:00 00:00:00 Norma Lewsi Medical Medical BOOKING MANAGER: [address], [place] [address] , Ph. Results This patient has no known results.
== END 2020-04-28 16:30 | disposition home or self-care (01) ==
LOC: OR 08:52
PROVIDERS: ATTEND Urology
PROC: BT1FZZZ Fluoroscopy of Left Kidney, Ureter and Bladder (ICD-10-PCS; 2020-04-28)
PROC: 0TF78ZZ Fragmentation in Left Ureter, Via Natural or Artificial Opening Endoscopic (ICD-10-PCS; 2020-04-28)
PROC: 0T778DZ Dilation of Left Ureter with Intraluminal Device, Via Natural or Artificial Opening Endoscopic (ICD-10-PCS; principal; 2020-04-28 11:00)
DX: N20.2 Calculus of kidney with calculus of ureter (principal); N28.1 Cyst of kidney, acquired; N32.89 Other specified disorders of bladder; R39.9 Unspecified symptoms and signs involving the genitourinary system; Z20.822 Contact with and (suspected) exposure to COVID-19
CPT/HCPCS: 87088; 87086; 82947 ×2; 74450; 51610; 50590; 52332; 52005; U0002; J2704; J1580; J2250; J3010 ×2; J1100; J0690; J7030 ×2; J2405; J0290